=== PATIENT | female | born 1970 | race Caucasian/White ===

== ENCOUNTER 2017-02-09 19:38 | Inpatient (IN) | payer BC ==
[~2017-02-09] VITALS: Ht 170.2 cm; Wt 54.0 kg
[2017-02-09] MEDS ORDERED: NS 1,000 ML IV ONE (20:30)
[2017-02-09 20:45] LABS: INR 1.12
[2017-02-09 20:46] LABS: ADD MANUAL DIFFER YES; DIFF SLIDE NUMBER 338; MEAN CORPUSCULAR HEMOGLOBIN 15.2 pg (27.0-33.0); MEAN CORPUSCULAR VOLUME 65.9 fl (80.0-96.0); PLATELET COUNT, AUTOMATED 137 k/mm3 (150-450); RED CELL DISTRIBUTION WIDTH 24.9 % (11.5-14.5); WHITE BLOOD COUNT 6.4 K/mm3 (4.0-10.0)
[2017-02-09 20:51] LABS: CONTROL LINE UCG INT CTR LINE PRESENT
[2017-02-09 21:00] LABS: ALKALINE PHOSPHATASE 67 U/L (45-117); ALT/SGPT 15 U/L (12-78); ANION GAP 8 MEQ/L (8-16); AST/SGOT 12 U/L (15-37); BLOOD UREA NITROGEN 13 MG/DL (7-18); CALCIUM LEVEL 9.4 MG/DL (8.5-10.1); CARBON DIOXIDE LEVEL 23 MEQ/L (21-32); CHLORIDE LEVEL 104 MEQ/L (98-107); CREATININE FOR GFR 0.73 MG/DL (0.55-1.02); GLOMERULAR FILTRATION RATE > 60.0 (>58); GLUCOSE, FASTING 112 MG/DL (70-105); POTASSIUM SERUM 4.1 MEQ/L (3.5-5.1); SODIUM LEVEL 135 MEQ/L (136-145)
[2017-02-09] MEDS: SENOKOT S TAB PO SCH (21:00)
[2017-02-09 21:01] LABS: ALBUMIN 3.7 GM/DL (3.2-5.2); ALBUMIN/GLOBULIN RATIO 1.09 (1.00-1.93); BILIRUBIN,DIRECT < 0.1 MG/DL (0.0-0.2); BILIRUBIN,TOTAL 0.3 MG/DL (0.2-1.0); TOTAL PROTEIN 7.1 GM/DL (6.4-8.2)
[2017-02-09 21:43] LABS: ANISOCYTOSIS 3+; EOSINOPHILS 1 % (0-5); MICROCYTOSIS 3+
[2017-02-09 21:44] LABS: POIKILOCYTOSIS 1+; POLYCHROMASIA 1+
[2017-02-09 21:45] LABS: HYPOCHROMASIA 3+
--- NOTE | 2017-02-09 22:00 | REPUSA ---
Clinical history: abnormal vaginal bleeding. Findings: Real-time transabdominal and transvaginal ultrasound images of the pelvis were obtained. A retroverted uterus is noted, measuring 9.0 x 5.7 cm. The uterus demonstrates diffuse heterogeneity. T here is a hypoechoic lesion in the anterior left uterus measuring 2.4 x 2.2 x 1.8 cm, consistent with a fibroid. The endometrial stripe measures 14 mm and is within normal limits. The right ovary measur es 4.3 x 3.1 x 2.6 cm. There is a right ovarian cyst measuring 2.9 by 2.6 by 1.7 cm. The left ovary w as not visualized. There is no evidence of free fluid. Impression: 1. Anterior uterine fibroid. 2. Simple right ovarian cyst. The left ovary was not visualized.
[2017-02-09 22:45] LABS: REASON FOR REVIEW ANEMIA / RBC MORPH
[2017-02-09] MEDS ORDERED: NS 1,000 ML IV SCH (23:00)
[2017-02-09 23:05] LABS: FOLATE 14.7 NG/ML (>5.4); VITAMIN B12 LEVEL 449 PG/ML (247-911)
[2017-02-09 23:23] LABS: FERRITIN 1 NG/ML (8-252); PERCENT SATURATION 1.6 % (13.2-37.4); TOTAL IRON BINDING CAPACITY 497 UG/DL (250-450)
[2017-02-09 23:44] VITALS: BP 132/68
[2017-02-10] VITALS (25 sets, daily range): BP systolic 127–162; BP diastolic 66–86
[2017-02-10 00:31] LABS: PREVIOUS RED BLOOD COUNT 1.78 M/mm3 (3.50-5.50)
[2017-02-10 00:32] LABS: RETICULOCYTE CALCULATED 3.7 % (0.5-1.5)
[2017-02-10 04:56] LABS: INR 1.19
[2017-02-10 04:57] LABS: MEAN CORPUSCULAR HEMOGLOBIN 22.5 pg (27.0-33.0); MEAN CORPUSCULAR HGB CONC 29.4 g/dl (32.0-36.5); RED CELL DISTRIBUTION WIDTH 22.4 % (11.5-14.5); WHITE BLOOD COUNT 4.8 K/mm3 (4.0-10.0)
[2017-02-10 05:03] LABS: ANION GAP 6 MEQ/L (8-16); BLOOD UREA NITROGEN 7 MG/DL (7-18); CALCIUM LEVEL 8.7 MG/DL (8.5-10.1); CARBON DIOXIDE LEVEL 23 MEQ/L (21-32); CHLORIDE LEVEL 108 MEQ/L (98-107); CREATININE FOR GFR 0.63 MG/DL (0.55-1.02); GLOMERULAR FILTRATION RATE > 60.0 (>58); GLUCOSE, FASTING 95 MG/DL (70-105); MAGNESIUM LEVEL 2.2 MG/DL (1.8-2.4); POTASSIUM SERUM 4.1 MEQ/L (3.5-5.1); SODIUM LEVEL 137 MEQ/L (136-145)
[2017-02-10 05:08] LABS: MEAN CORPUSCULAR VOLUME 76.3 fl (80.0-96.0)
[2017-02-10] MEDS: ASCORBIC ACID 500 MG TAB PO SCH ×2 (08:17→20:06)
[2017-02-10] MEDS: SENOKOT S TAB PO SCH ×2 (08:17→20:06)
[2017-02-10] MEDS: FERROUS SULFATE 325MG TAB PO SCH ×3 (08:17→20:06)
--- NOTE | 2017-02-10 08:24 | CR ---
DATE OF CONSULTATION: 02/09/2017 REASON FOR CONSULTATION: Abnormal uterine bleeding. HISTORY OF PRESENT ILLNESS: Mrs. Camara is a 47-year-old, 3, para 3 who initially presented last night in the emergency room with several days of extreme fatigue. She reports that on 02/02/2017 she had a heavy menses that started and this menses had followed a previous menstrual cycle approximately 10 days prior. This menstrual cycle that started on the 4th, she states that she went through approximately 20 pads a day at the heaviest peak and has continued until yesterday. Currently, she has some scant bleeding. She reports a history of heavy and prolonged menses. She states that this has been occurring for years. Her cycle normally lasts 7 to 8 days. She goes through approximately eight pads a day and requires overnight pad changes. PAST MEDICAL HISTORY: None. PAST SURGICAL HISTORY She has had an appendectomy. PAST OBSTETRICAL HISTORY: She is a 3, para 3. She has had three term vaginal deliveries, uncomplicated. Children are 19, 21, and 22. GYNECOLOGICAL HISTORY: She reports a long history of prolonged heavy menses. She states that since the of her youngest child they have been this heavy. She has not had a Pap smear or pelvic examination or any health maintenance for approximately 20 years. FAMILY HISTORY: Noncontributory. PHYSICAL EXAMINATION: VITAL SIGNS: Blood pressure 136/75, respirations 20, pulse is 82. She is afebrile. She is saturating 100% on room air. GENERAL APPEARANCE: Well appearing. No acute distress. LUNGS: Clear to auscultation bilaterally. CARDIOVASCULAR: Heart has regular rate and rhythm. ABDOMEN: Soft, nontender, nondistended. PELVIC EXAMINATION: Deferred. LABORATORY DATA: CBC: White blood count was 6.4, hemoglobin 2.7, hematocrit 11.7, platelets 137. Her last CBC after two packed units, her hemoglobin 6.7, hematocrit 22.7, platelets 86. IMAGING: She had a pelvic ultrasound that showed a normal sized uterus of 9 x 5.7 cm with thickened endometrium of 14 mm. There was an anterior fibroid that was measured at 2.4 x 2.2 x 1.8. Right ovarian cyst was seen at 2.9 cm. ASSESSMENT: Mrs. Camara is a 47-year-old 3, para 3 with: 1. Abnormal uterine bleeding with menorrhagia. 2. Severe anemia, symptomatic. Currently stable. 3. Fibroid uterus. 4. Right ovarian cyst. I do believe her anemia is a chronic issue associated with her abnormal uterine bleeding based on her history, likely source of dysfunction bleeding is fibroid uterus, although cannot exclude endometrial hyperplasia or carcinoma. PLAN: I have discussed these findings, as well as my differential diagnosis. We will temporarily place her on medroxyprogesterone 10 mg daily for management of her menorrhagia. She will need a Pap smear, as well as an endometrial biopsy, which can be performed as an outpatient upon discharge from intensive care unit (ICU). I have also discussed long-term treatment options, to include continued medication management with oral contraception pills, progesterone therapy, or Mirena IUD. I did also review surgical options with risks and benefits, including endometrial ablation, hysterectomy. I would not recommend a myomectomy, as she is perimenopausal. I have provided my contact information and Mrs. Camara should followup with me within 1 week of discharge from the hospital. I would like to thank you for the consultation for this pleasant lady. SAGE
--- NOTE | 2017-02-10 08:26 | IPNPDOC ---
Text Note Date of Service The patient was seen on 02/10/17. NOTE Subjective: Feels well. Denies CP/SOB/palpitations. Mild vaginal bleeding. Objective: Vitals: (see below) General: No acute distress, laying comfortably in bed. HEENT: Moist mucous membranes. Neck: No JVD or lymphadenopathy Cardiac: RRR, No murmurs Pulm: Clear to auscultation b/l. No wheezing, rhonchi Abd: NT/ND + BS Ext: No edema or cyanosis. Labs (see below) Images: Pelvic u/s 02/09/17 Impression: 1. Anterior uterine fibroid. 2. Simple right ovarian cyst. The left ovary was not visualized. Assessment/Plan 1. Symptomatic anemia- patient does have significant history of vaginal bleeding as well as a uterine fibroid on pelvic ultrasound. The patient has received 4 units PRBC overnight, with significant improvement of her hemoglobin from 2.7-->6.7. Her tachycardia is much improved as well. She is hemodynamically stable. We'll transfuse 2 more units. Started on ferrous sulfate given iron deficiency anemia. 2. Uterine Fibroid - Gynecology has been consulted. We'll also need outpatient follow-up. 3. Thrombocytopenia- we'll follow-up peripheral smear. Continue to monitor. No acute bleeding at this time. No transfusion indicated at this time. 4. Sinus tachycardia- secondary to symptomatically anemia. Improved. 5. Patient has not seen a physician in over 20 years. 6. T wave changes on EKG, will repeat. Echo pending. 7. Fevers - UA wnl. CXR/blood cx pending. DVT prophy: SCDs Patient with primary care physician on discharge. She will need to have close outpatient follow-up. VS,Fishbone, I+O VS, Fishbone, I+O Laboratory Tests 02/09/17 20:29 Red Blood Count 1.78 L, Mean Corpuscular Volume 65.9 L, Mean Corpuscular Hemoglobin 15.2 L, Mean Corpuscular Hemoglobin Concent 23.0 L, Red Cell Distribution Width 24.9 H 02/10/17 04:28 Red Blood Count 2.97 L, Mean Corpuscular Volume 76.3 #L, Mean Corpuscular Hemoglobin 22.5 L, Mean Corpuscular Hemoglobin Concent 29.4 L, Red Cell Distribution Width 22.4 H 02/10/17 04:29 Calcium Level 8.7 Vital Signs Date Time Temp Pulse Resp B/P (MAP) Pulse Ox O2 Delivery O2 Flow Rate FiO2 02/10/17 06:36 98.7 78 22 145/71 (95) 99 Room Air I&O- Last 24 Hours up to 6 AM 02/10/17 06:00 Intake Total 575 ml Output Total 750 ml Balance -175 ml ZACHERY CALHOUN MD Feb 10, 2017 08:26
[2017-02-10] MEDS: medroxyPROGESTERone 5MG TABLET PO SCH (10:04)
--- NOTE | 2017-02-10 10:54 | REP ---
Portable chest: Single view. History: Fever Comparison study: No comparison study Findings: EKG monitoring electrodes overlie the chest. The lungs are well inflated and clear. No infiltrate is seen. Pleural angles are sharp. Cardiomediastinal silhouette is unremarkable. Pulmonary vasculature is not increased. Impression: Negative portable chest x-ray. Signed by Holden Schmidt MD 02/10/2017 10:45 A
[2017-02-10] MEDS ORDERED: ACETAMINOPHEN 325 MG TAB PO PRN (14:15)
--- NOTE | 2017-02-10 20:42 | HPE ---
DATE OF ADMISSION: 02/09/2017 CHIEF COMPLAINT: Lightheadedness and weakness. PRIMARY CARE PROVIDER: None. HISTORY OF PRESENT ILLNESS: This is a 47-year-old female patient with no significant underlying medical history, has not seen a doctor in years, does not even remember when was the last time she saw a doctor, and usually gets her care from urgent care. Presented to the hospital with vaginal bleeding, also found to have lightheadedness, generalized weakness, heart that is racing for the past one day. As per patient, she usually has her period in the middle of the month. This time, the period started early on 02/02, has continued, passing significant amount of clots and subsequently had slowly started to get better over the past three days, only having spots. As per patient, her last period prior to this was 02/15, usually her period lasting 7-8 days. The patient denies any melena, making bowel movement once a day, has no change, and has no other bleeding source. She presented today in the emergency room, was found to be tachycardic and found to have anemia with hemoglobin of 2.7. Orthostatic was done. The patient was a bit hypertensive but shows worsening tachycardia, with heart rate of 103 to a heart rate of 118, but was able to hold a blood pressure of 140-156 systolic and 76-85 diastolic from supine to standing. About five units of packed red blood cells (PRBCs) were ordered. The patient was consented for transfusion. The patient reported lightheadedness and heart racing, reported generalized weakness, otherwise was healthy. The patient has been twice with normal vaginal delivery. Otherwise, denies any other medical problems. Has no history of bleeding. Denies family history of cancer. Denies any chest pain. Denies any fever, chills, abdominal pain. ALLERGIES: No known drug allergies. PAST MEDICAL HISTORY: None. PAST SURGICAL HISTORY: Appendectomy. SOCIAL HISTORY: The patient drinks beer on very rare occasions once a month. Denies smoking or illicit drug use. FAMILY HISTORY: Denies family history of cancer or gynecological cancer. REVIEW OF SYSTEMS: Reported vaginal bleeding, lightheadedness, heart that is racing. All other review of systems is negative. HOME MEDICATIONS: None. VITAL SIGNS: Temperature 99.3, pulse 103, respirations 18, blood pressure 140/76, pulse oximetry 100% on room air. GENERAL: Patient is pale, alert and oriented times three, in no acute distress. HEENT: Normocephalic, atraumatic. PULMONARY: Bilateral clear to auscultation. CARDIAC: Tachycardia, regular. S1, S2. ABDOMEN: Soft, nontender, nondistended. Positive bowel sounds. EXTREMITIES: No edema bilateral lower extremities. NEUROLOGIC: No focal deficits. LABORATORY DATA: WBC 6.4, hemoglobin and hematocrit 2.7 over 11.7, platelets 137. Chemistry: Sodium 135, potassium 4.1, chloride 104, bicarbonate 23, BUN 13, creatinine 0.73. ASSESSMENT AND PLAN: This is a 47-year-old female patient with no significant past medical history presenting with vaginal bleeding, severe anemia. 1. Severe symptomatic anemia likely secondary to uterine bleeding. Transvaginal ultrasound appreciated showing fibroid. Followup anemia without. Orthostatic vital signs appreciated. Anemia workup, reticulocyte count, iron panel. B12, folic acid have been ordered. Gynecology (SEAFOOD SPECIALIST) Dr. Regan has been consulted for further management of uterine fibroid bleed. Followup fecal occult. Transfuse five units of PRBCs overnight. Will followup vital signs. Intravenous (IV) fluids for hydration. Followup orthostatic vital signs. Followup peripheral smears. Supportive care. 2. Uterine fibroids. SEAFOOD SPECIALIST has been consulted. Further management as per Dr. Regan. 3. Possible acute blood loss anemia secondary to vaginal bleeding, but given patient probably is chronically anemic but has worsened given the recent episode of vaginal bleeding, followup hemoglobin and hematocrit, transfuse five units PRBCs. Further transfusion as needed. Followup orthostatic vital signs. Gynecology has been consulted. Anemia workup as ordered. 4. Thrombocytopenia. Continue to follow. Followup peripheral smear. 5. Deep venous thrombosis (DVT) prophylaxis. The patient is severely anemia. Venodyne sequential compression device and early ambulation. DISPOSITION: Pending SEAFOOD SPECIALIST consultation, clinical improvement. Patient admitted to progressive care unit (PCU) for close monitoring.
--- NOTE | 2017-02-10 21:49 | ECGEPIP ---
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 Electronically Signed On 02-10-2017 21:48:53 EDT by Mauricio Britton
--- NOTE | 2017-02-10 21:55 | ECGEPIP ---
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 No significant change compared with 02/10/2017. Electronically Signed On 02-10-2017 21:55:01 EDT by Mauricio Britton
[2017-02-11] VITALS (7 sets, daily range): BP systolic 125–147; BP diastolic 67–81
[2017-02-11 04:56] LABS: MEAN CORPUSCULAR HEMOGLOBIN 25.3 pg (27.0-33.0); MEAN CORPUSCULAR HGB CONC 31.2 g/dl (32.0-36.5); MEAN CORPUSCULAR VOLUME 81.1 fl (80.0-96.0); RED CELL DISTRIBUTION WIDTH 21.1 % (11.5-14.5)
[2017-02-11 05:00] LABS: INR 1.17
[2017-02-11 05:14] LABS: ANION GAP 6 MEQ/L (8-16); BLOOD UREA NITROGEN 5 MG/DL (7-18); CALCIUM LEVEL 8.8 MG/DL (8.5-10.1); CARBON DIOXIDE LEVEL 24 MEQ/L (21-32); CHLORIDE LEVEL 110 MEQ/L (98-107); CREATININE FOR GFR 0.48 MG/DL (0.55-1.02); GLOMERULAR FILTRATION RATE > 60.0 (>58); GLUCOSE, FASTING 88 MG/DL (70-105); MAGNESIUM LEVEL 2.3 MG/DL (1.8-2.4); POTASSIUM SERUM 3.6 MEQ/L (3.5-5.1); SODIUM LEVEL 140 MEQ/L (136-145)
[2017-02-11] MEDS: FERROUS SULFATE 325MG TAB PO SCH ×3 (09:03→20:41)
[2017-02-11] MEDS: SENOKOT S TAB PO SCH (09:03)
[2017-02-11] MEDS: ASCORBIC ACID 500 MG TAB PO SCH ×2 (09:03→20:41)
[2017-02-11] MEDS: medroxyPROGESTERone 5MG TABLET PO SCH (09:03)
--- NOTE | 2017-02-11 10:24 | IPNPDOC ---
Text Note Date of Service The patient was seen on 02/11/17. NOTE Subjective: Feels well. Had CP last night. Pressure like 02/08, midsternal, non radiating. Non reproducible/non-positional/non pleuritic, lasted minutes. No associated Nausea, diaphoresis. Resolved spontaneously. Objective: Vitals: (see below) General: No acute distress, laying comfortably in bed. HEENT: Moist mucous membranes. Neck: No JVD or lymphadenopathy Cardiac: RRR, No murmurs Pulm: Clear to auscultation b/l. No wheezing, rhonchi Abd: NT/ND + BS Ext: No edema or cyanosis. Labs (see below) Images: Pelvic u/s 02/09/17 Impression: 1. Anterior uterine fibroid. 2. Simple right ovarian cyst. The left ovary was not visualized. Assessment/Plan 1. Symptomatic anemia- patient does have significant history of vaginal bleeding as well as a uterine fibroid on pelvic ultrasound. The patient has received 5 units PRBC overnight, with significant improvement of her hemoglobin from 2.7-->6.7-->9.6. Her tachycardia is much improved as well. She is hemodynamically stable.. Started on ferrous sulfate given iron deficiency anemia. 2. Uterine Fibroid - Gynecology has been consulted. We'll also need outpatient follow-up. 3. Thrombocytopenia- improved. Continue to monitor. No acute bleeding at this time. No transfusion indicated at this time. 4. Sinus tachycardia- resolved. Secondary to symptomatically anemia. Improved. 5. Patient has not seen a physician in over 20 years. 6. CP with T wave changes on EKG. CE negative. Echo pending. Will need outpt cardio f/u/stress test. 7. Fevers - UA wnl. CXR wnl. Blood cx pending. DVT prophy: SCDs Patient will be set up primary care physician on discharge. She will need to have close outpatient follow-up. VS,Fishbone, I+O VS, Fishbone, I+O Laboratory Tests 02/10/17 12:01 02/10/17 19:50 02/11/17 04:22 Red Blood Count 3.81 L, Mean Corpuscular Volume 81.1, Mean Corpuscular Hemoglobin 25.3 L, Mean Corpuscular Hemoglobin Concent 31.2 L, Red Cell Distribution Width 21.1 H, Calcium Level 8.8, Total Creatine Kinase 30 Vital Signs Date Time Temp Pulse Resp B/P (MAP) Pulse Ox O2 Delivery O2 Flow Rate FiO2 02/11/17 07:45 100.1 87 20 125/67 (86) 99 Room Air I&O- Last 24 Hours up to 6 AM 02/11/17 06:00 Intake Total 2900 ml Output Total 3100 ml Balance -200 ml ZACHERY CALHOUN MD Feb 11, 2017 10:24
[2017-02-11] MEDS ORDERED: SLF 3 ML SYR IV PRN (11:30)
[2017-02-11] MEDS: SLF 3 ML SYR IV SCH ×2 (14:44→22:37)
--- NOTE | 2017-02-11 18:48 | ECHO ---
DATE OF PROCEDURE: 02/11/2017 REFERRING PHYSICIAN: Dr. Aparicio INDICATIONS: Abnormal ECG. HEIGHT: 170 cm WEIGHT: 54 kg DIMENSIONS: IVS 0.9 LV 4.9 LVPW 1.2 LA 3.8 Aorta 2.9 FINDINGS: The study is of excellent technical quality. Left ventricle is of normal size and systolic function with estimated EF 60-65%. Right ventricle is also normal size and systolic function. Both atria appear normal size. Aortic valve is tricuspid and has normal mobility. There is anterior mitral leaflet prolapse. Tricuspid valve is normal. Pulmonic valve is also normal. No pericardial effusion is noted. Inferior vena cava is on upper on upper limits of normal size or mildly dilated. Aortic root, aortic arch and abdominal aorta appear all normal. Doppler interrogation of aortic valve reveals no stenosis or insufficiency. There is a posteriorly and laterally oriented MR jet with approximately moderate mitral insufficiency. There is mild tricuspid insufficiency. Calculated pulmonary artery pressure is on upper limits of normal values or mildly elevated. Pulmonic valve is functionally competent. Mitral inflow pattern and tissue Doppler imaging of mitral annulus reveal normal diastolic functional left ventricle. CONCLUSIONS: 1. Study is of excellent technical quality. 2. Normal LV size, systolic and diastolic function. 3. Anterior mitral leaflet prolapse resulting in moderate mitral insufficiency. 4. Normal or mildly elevated central venous pressure and pulmonary artery pressure. COMMENT: Subacute bacterial endocarditis (SBE) prophylaxis is not recommended. Close clinical followup is recommended. Followup echocardiogram can be considered in 2-3 years or sooner if clinically warranted. MTDD
[2017-02-12 05:01] LABS: INR 1.11
[2017-02-12 05:02] LABS: MEAN CORPUSCULAR HEMOGLOBIN 25.2 pg (27.0-33.0); MEAN CORPUSCULAR HGB CONC 31.1 g/dl (32.0-36.5); RED CELL DISTRIBUTION WIDTH 22.1 % (11.5-14.5); WHITE BLOOD COUNT 7.7 K/mm3 (4.0-10.0)
[2017-02-12 05:03] VITALS: BP 140/79
[2017-02-12 05:03] LABS: ANION GAP 6 MEQ/L (8-16); BLOOD UREA NITROGEN 4 MG/DL (7-18); CALCIUM LEVEL 8.6 MG/DL (8.5-10.1); CARBON DIOXIDE LEVEL 23 MEQ/L (21-32); CHLORIDE LEVEL 110 MEQ/L (98-107); CREATININE FOR GFR 0.46 MG/DL (0.55-1.02); GLOMERULAR FILTRATION RATE > 60.0 (>58); GLUCOSE, FASTING 87 MG/DL (70-105); MAGNESIUM LEVEL 2.3 MG/DL (1.8-2.4); POTASSIUM SERUM 3.6 MEQ/L (3.5-5.1); SODIUM LEVEL 139 MEQ/L (136-145)
[2017-02-12] MEDS: SLF 3 ML SYR IV SCH (06:19)
[2017-02-12 08:00] VITALS: BP 137/80
[2017-02-12] MEDS ORDERED: MEDR5TAB3 PO (08:12)
[2017-02-12] MEDS ORDERED: FERR1TAB8 PO (08:12)
[2017-02-12] MEDS: ASCORBIC ACID 500 MG TAB PO SCH (08:48)
[2017-02-12] MEDS: medroxyPROGESTERone 5MG TABLET PO SCH (08:48)
[2017-02-12] MEDS: FERROUS SULFATE 325MG TAB PO SCH (08:48)
--- NOTE | 2017-02-12 12:22 | DS.PDOC ---
Discharge Summary General Date of Admission Feb 09, 2017 at 22:51 Date of Discharge 02/12/17 Attending Physician: ZACHERY CALHOUN MD Discharge Summary PROCEDURES PERFORMED DURING STAY: None. ADMITTING/DISCHARGE DIAGNOSES: 1. Symptomatic anemia 2. Uterine dysfunction/uterine fibroid 3. Thrombocytopenia resolved 4. Atypical chest pain 5. Mitral regurg 6. Iron deficiency anemia COMPLICATIONS/CHIEF COMPLAINT: Acute Blood Loss Anemia. HISTORY OF PRESENT ILLNESS/HOSPITAL COURSE: . This is a 39-year-old female with no significant past medical history has not seen a physician in over 20 years who presents complaining of shortness of breath and generalized weakness. Patient was found to be severely anemic with a hemoglobin of 2.7. Patient did receive 5 units PRBC with significant improvement of her hemoglobin. Patient's hemoglobin remained stable. Patient has been having uterine bleeding for years and has not been seen by a hand plug shaper. During this hospitalization, Dr. Regan evaluated the patient is started her on medroxyprogesterone, which she is to continuing to follow-up with him in 1-2 weeks in the office. Patient does have uterine fibroid which is likely the cause of her heavy menses. The patient will need close follow-up in regards to whether to resect this fibroid. During his hospital addition, patient also complained of chest pain, which is further worked up with an EKG noting a T-wave inversions in V1 and V2. Patient also had an echocardiogram with mitral regurgitation noted. The patient was advised to follow-up with a phlebotomy supervisor in 1-2 weeks she will need a stress test to rule out ischemia. The patient remained hemodynamically stable. She did have a few episodes of fevers however no source of infection was noted, the fevers self resolved, and blood cultures have been negative. Questionable whether these fevers were caused by the blood transfusion. Patient is hemodynamically stable be discharged home today. DISCHARGE MEDICATIONS: Please see below. ALLERGIES: Please see below. PHYSICAL EXAMINATION ON DISCHARGE: VITAL SIGNS: Please see below. Vitals: (see below) General: No acute distress, laying comfortably in bed. HEENT: Moist mucous membranes. Neck: No JVD or lymphadenopathy Cardiac: RRR, No murmurs Pulm: Clear to auscultation b/l. No wheezing, rhonchi Abd: NT/ND + BS Ext: No edema or cyanosis. LABORATORY DATA: Please see below. IMAGING: Chest x-ray 02/10/17 Impression:Negative portable chest x-ray. Pelvic ultrasound 02/09/17 Impression: 1. Anterior uterine fibroid. 2. Simple right ovarian cyst. The left ovary was not visualized. Echocardiogram 02/11/17 CONCLUSIONS: 1. Study is of excellent technical quality. 2. Normal LV size, systolic and diastolic function. 3. Anterior mitral leaflet prolapse. The resulting in moderate mitral insufficiency. 4. Normal mildly elevated central venous pressure and pulmonary artery pressure. PROGNOSIS: Fair ACTIVITY: As tolerated. DIET: As tolerated DISCHARGE PLAN/DISPOSITION: Home DISCHARGE INSTRUCTIONS: 1. Follow-up with PCP, cardiology, and Dr. Regan in 1-2 weeks. Patient states she would like to make her own appointments. DISCHARGE CONDITION: Stable. TIME SPENT ON DISCHARGE: Greater than 30 minutes. Vital Signs/I&Os Vital Signs Date Time Temp Pulse Resp B/P (MAP) Pulse Ox O2 Delivery O2 Flow Rate FiO2 02/12/17 08:00 98.6 73 18 137/80 (99) 100 Room Air I&O- Last 24 Hours up to 6 AM 02/12/17 06:00 Intake Total 1140 ml Output Total 3350 ml Balance -2210 ml Laboratory Data Labs 24H Laboratory Tests 2 02/12/17 04:37: Prothrombin Time 14.5, Prothromb Time International Ratio 1.11, Anion Gap 6L, Glomerular Filtration Rate > 60.0, Blood Urea Nitrogen 4L, Creatinine 0.46L, Sodium Level 139, Potassium Level 3.6, Chloride Level 110H, Carbon Dioxide Level 23, Calcium Level 8.6, Magnesium Level 2.3 CBC/BMP Laboratory Tests 02/11/17 12:04 02/11/17 19:49 02/12/17 04:37 Red Blood Count 3.89 L, Mean Corpuscular Volume 81.0, Mean Corpuscular Hemoglobin 25.2 L, Mean Corpuscular Hemoglobin Concent 31.1 L, Red Cell Distribution Width 22.1 H, Calcium Level 8.6 Microbiology Microbiology 02/10/17 Blood Culture - Preliminary, Resulted No growth after 24 hours . All specim... 02/10/17 Blood Culture - Preliminary, Resulted No growth after 24 hours . All specim... 02/09/17 Urine Culture - Final, Complete Discharge Medications Scheduled Ferrous Sulfate (Ferrous Sulfate) 325 Mg Tab, 325 MG PO TID Medroxyprogesterone Acetate (Medroxyprogesterone Aceta) 5 Mg Tab, 10 MG PO DAILY Allergies Coded Allergies: No Known Allergies (Unverified , 02/09/17) ZACHERY CALHOUN MD Feb 12, 2017 12:22
[2017-03-08] MEDS ORDERED: [UNRECOGNIZED DRUG - CODE] PO (13:15)
== END 2017-02-12 12:13 | disposition home or self-care (01) | DRG 532 ==
LOC: M ED 19:38 → M ED INP 22:51 → M ICU 02-10 → M PCU 02-10 14:56
PROVIDERS: ADMIT Hospitalist; ATTEND Internal Medicine
PROC: 30253N1 (ICD-10-PCS; principal; 2017-02-09)
DX: N92.0 Excessive and frequent menstruation with regular cycle (principal); D62 Acute posthemorrhagic anemia; D69.6 Thrombocytopenia, unspecified; D25.9 Leiomyoma of uterus, unspecified; N83.201 Unspecified ovarian cyst, right side; R07.9 Chest pain, unspecified; R50.9 Fever, unspecified; R00.0 Tachycardia, unspecified

== ENCOUNTER 2017-02-22 20:48 | Emergency (ER) | payer BC ==
[~2017-02-22] VITALS: Ht 170.2 cm; Wt 52.9 kg
[~2017-02-22 20:48] MED LIST: FERR1TAB8 PO; MEDR5TAB3 PO
[2017-02-22] MEDS ORDERED: NS 1,000 ML IV ONE (22:30)
[2017-02-22 22:40] LABS: BASO # 0.1 K/mm3 (0.0-0.2); BASO % 0.8 % (0.0-1.0); EOS % 0.3 % (0.0-3.0); LARGE UNSTAINED CELL # 0.2 K/mm3 (0.0-0.4); LARGE UNSTAINED CELL % 1.5 % (0.0-4.0); LYMPH # 1.4 K/mm3 (1.5-4.5); LYMPH % 14.2 % (24.0-44.0); MEAN CORPUSCULAR HEMOGLOBIN 25.5 pg (27.0-33.0); MEAN CORPUSCULAR HGB CONC 30.4 g/dl (32.0-36.5); MEAN CORPUSCULAR VOLUME 83.8 fl (80.0-96.0); MONO # 0.5 K/mm3 (0.0-0.8); MONO % 4.6 % (0.0-5.0); NEUTROPHILS # 7.7 K/mm3 (1.8-7.7); NEUTROPHILS % 78.6 % (36.0-66.0); PLATELET COUNT, AUTOMATED 290 k/mm3 (150-450); RED CELL DISTRIBUTION WIDTH 22.3 % (11.5-14.5); WHITE BLOOD COUNT 9.8 K/mm3 (4.0-10.0)
[2017-02-22 22:42] LABS: ADD MORPHOLOGY? YES
[2017-02-22 22:54] LABS: ANION GAP 7 MEQ/L (8-16); BLOOD UREA NITROGEN 12 MG/DL (7-18); CALCIUM LEVEL 9.6 MG/DL (8.5-10.1); CARBON DIOXIDE LEVEL 24 MEQ/L (21-32); CHLORIDE LEVEL 105 MEQ/L (98-107); CREATININE FOR GFR 0.58 MG/DL (0.55-1.02); GLOMERULAR FILTRATION RATE > 60.0 (>58); GLUCOSE, FASTING 114 MG/DL (70-105); POTASSIUM SERUM 3.9 MEQ/L (3.5-5.1); SODIUM LEVEL 136 MEQ/L (136-145)
[2017-02-22 23:36] LABS: ANISOCYTOSIS 3+
[2017-02-22 23:38] LABS: HYPOCHROMASIA 1+
--- NOTE | 2017-02-23 | REPUSA ---
Clinical history: bleeding. Comparison: 02/09/2017. Findings: Real-time transvaginal ultrasound images of the pelvis were obtained. An anteverted uterus is noted, measuring 9.6 x 6.8 x 7.8 cm. The uterus demonstrates numerous solid masses. There is a l arge hyperechoic mass in the left posterior uterus measuring 3.2 x 3.3 x 2.8 cm. A anterior left fib roid is noted measuring 2.7 x 2.3 x 2.4 cm. The endometrial stripe measures 21 mm. Complex material i s seen within the endometrial canal. The right ovary measures 4.9 x 3.6 x 3.2 cm. There is a simple r ight ovarian cyst, measuring 2.9 x 3.0 x 2.2 cm. The left ovary was not visualized. Normal color Dopp ler flow is seen within the right ovary.. There is no evidence of free fluid. Impression: 1.. Simple right ovarian cyst. 2.. The left ovary was not visualized. 3. Leiomyomatous uterus. 4. Thickened, echogenic endometrial canal, suspicious for blood products and clot. This finding of bl eeding is new since the prior study. Clinical correlation is recommended.
[2017-02-23 01:13] VITALS: BP 134/85
--- NOTE | 2017-02-23 18:44 | ED PDOC ---
Post-Departure Follow-Up dr hyde faxed formal report of pelvic us for fu Mohsen Hwang MD Feb 23, 2017 18:44
[2017-03-08] MEDS ORDERED: [UNRECOGNIZED DRUG - CODE] PO (13:15)
== END 2017-02-23 01:14 | disposition home or self-care (01) ==
LOC: M ED 20:48
DX: D25.9 Leiomyoma of uterus, unspecified (principal); N83.291 Other ovarian cyst, right side; N85.00 Endometrial hyperplasia, unspecified; N93.8 Other specified abnormal uterine and vaginal bleeding; D64.9 Anemia, unspecified; Z90.89 Acquired absence of other organs; Z79.899 Other long term (current) drug therapy

== ENCOUNTER → 2017-02-24 | Outpatient (REF) | payer BC ==
[~2017-02-24] MED LIST changes: +FERR325T3 PO; +OXYC1TAB23 PO; +[UNRECOGNIZED DRUG - CODE] PO
== END ==
LOC: M LAB REF 17:04
PROVIDERS: ATTEND Obstetrics & Gynecology
DX: N92.1 Excessive and frequent menstruation with irregular cycle (principal)

== ENCOUNTER 2017-03-11 05:35 | Day surgery (SDC) | payer BC ==
[~2017-03-11] VITALS: Ht 170.2 cm; Wt 53.1 kg
[2017-03-11] VITALS (7 sets, daily range): BP systolic 118–136; BP diastolic 57–69
[~2017-03-11 05:35] MED LIST changes: -FERR325T3 PO; -OXYC1TAB23 PO
[2017-03-11] MEDS ORDERED: LR 1,000 ML IV ONE (06:00)
[2017-03-11] MEDS ORDERED: LIDOCAINE 1% MDV 20ML VIAL SQ ONE (06:00)
[2017-03-11 06:14] LABS: MEAN CORPUSCULAR HEMOGLOBIN 26.8 pg (27.0-33.0); MEAN CORPUSCULAR HGB CONC 29.8 g/dl (32.0-36.5); MEAN CORPUSCULAR VOLUME 89.8 fl (80.0-96.0); RED CELL DISTRIBUTION WIDTH 18.8 % (11.5-14.5)
[2017-03-11 06:21] LABS: CONTROL LINE HCG INT CTR LINE PRESENT
[2017-03-11] MEDS ORDERED: BUPIVACAINE HCL 0.25% 30 ML VIAL As Ordered ONE (07:18)
[2017-03-11] MEDS ORDERED: METHYLENE BLUE 0.5% (5MG/ML) 10 ML AMP (PROVAYBLUE)(Q9968 PER 1MG) As Ordered ONE (07:18)
[2017-03-11] MEDS ORDERED: MIDAZOLAM INJ 2 MG/2 ML VIAL (J2250) As Ordered ONE (08:00)
[2017-03-11] MEDS ORDERED: fentaNYL 250 MCG/5 ML INJECTION (J3010) As Ordered ONE (08:00)
[2017-03-11] MEDS ORDERED: PROPOFOL 500 MG/50 ML VIAL As Ordered ONE (08:00)
[2017-03-11] MEDS ORDERED: dexameTHASONE 4 MG/ML 1ML VIAL (J1100) As Ordered ONE (08:00)
[2017-03-11] MEDS ORDERED: METOCLOPRAMIDE INJ 10MG/2ML VIAL (J2765) As Ordered ONE (08:01)
[2017-03-11] MEDS ORDERED: LIDOCAINE 2% INJ 100 MG/5 ML SDV (FOR ANES.) As Ordered ONE (08:01)
[2017-03-11] MEDS ORDERED: ONDANSETRON 4MG/2ML VIAL (J2405) As Ordered ONE (08:01)
[2017-03-11] MEDS ORDERED: VECURONIUM BROMIDE 10 MG VIAL As Ordered ONE (08:01)
[2017-03-11] MEDS ORDERED: fentaNYL 100 MCG/2 ML INJECTION (J3010) As Ordered ONE (09:29)
[2017-03-11] MEDS ORDERED: KETOROLAC 60 MG/2 ML VIAL (J1885) As Ordered ONE (09:31)
[2017-03-11] MEDS ORDERED: DESFLURANE 240 ML INHALANT As Ordered ONE (09:41)
[2017-03-11] MEDS ORDERED: NEOSTIGMINE 1MG/ML 5 ML SYRINGE (J2710) As Ordered ONE (10:11)
[2017-03-11] MEDS ORDERED: GLYCOPYRROLATE INJ 0.2 MG/ML 2 ML VIAL As Ordered ONE (10:12)
[2017-03-11] MEDS ORDERED: fentaNYL 100 MCG/2 ML INJECTION (J3010) IV PRN (11:00)
[2017-03-11] MEDS ORDERED: LR 1,000 ML IV SCH (11:00)
[2017-03-11] MEDS ORDERED: ONDANSETRON 4MG/2ML VIAL (J2405) IV PRN (11:00)
[2017-03-11] MEDS ORDERED: PROMETHAZINE INJ 25 MG/ML VIAL (J2550) IV PRN (11:15)
[2017-03-11] MEDS ORDERED: MORPHINE 4 MG/ML 1ML SYRINGE IV PRN (11:15)
[2017-03-11] MEDS ORDERED: PERCOCET 5MG/325MG TAB PO PRN ×3 (11:15→12:15)
[2017-03-11] MEDS ORDERED: zolPIDEM TARTRATE 10MG TAB PO PRN (11:15)
--- NOTE | 2017-03-11 12:14 | RO ---
DATE OF PROCEDURE: 03/11/2017 PREOPERATIVE DIAGNOSIS: Symptomatic fibroid uterus. POSTOPERATIVE DIAGNOSIS: Symptomatic fibroid uterus. PROCEDURE PERFORMED: 1. Robotic assisted laparoscopic hysterectomy. 2. Bilateral salpingo-oophorectomy. 3. Cystoscopy. 4. Lysis of adhesions SURGEON: Ciera Regan MD [facility] OPERATOR: PORSHA Boudreaux ANESTHESIA: General endotracheal anesthesia. INTRAVENOUS FLUIDS: 1800 mL Lactated Ringer's solution. SPECIMENS: Cervix, uterus, bilateral fallopian tubes and ovaries. PREOPERATIVE ANTIBIOTICS: 2 grams of Ancef. OPERATIVE FINDINGS: Large fibroid uterus weighing 215 grams. Normal appearing bilateral adnexa. Omentum adhesions to anterior abdominal wall. DESCRIPTION OF OPERATION: After informed consent was obtained and written consent was reviewed, the patient was then brought to the operating room where general endotracheal anesthesia was obtained. She was placed in lithotomy position, was prepped and draped in a normal sterile fashion. A time out in the operating room was then performed identifying the patient, procedure to be performed as well as drug allergies. A speculum was then placed revealing the cervix. The anterior and posterior aspect of the cervix was stitched with #0 Vicryl. The uterus was then sounded to 13 cm. An extra large VCare uterine manipulator was then advanced through the cervical os for a means to manipulate the uterus. The intrauterine balloon was insufflated with 10 mL of air. The cervical cap as well as the vaginal sleeve was advanced down into the vagina. Instruments were removed from the vagina. A Riddle catheter was then placed and set to gravity. Gloves were changed and attention was turned to the patient's abdomen where a Veress needle was placed in the umbilicus and a pneumoperitoneum was obtained with CO2 gas. The umbilical area was then infused with 0.25% Marcaine and an incision was made into this area. A 12 mm trocar and sleeve was advanced through this incision. Laparoscope was then replaced revealing intra-abdominal placement. Two lateral ports left and to the right of the umbilicus were placed. Each of these were infused with 0.25% Marcaine. An 8 mm trocar and sleeve was advanced through each one of these incisions under direct visualization. A fourth trocar was placed in the left side of the patient's abdomen. This area was infused with 0.25% Marcaine. An incision was made in this area and another 8 mm trocar and sleeve was advanced through this incision under direct visualization. Next, the da Samantha was advanced to the patient's table and was docked utilizing the camera arm and two operative arm. Utilizing the da Samantha equipment with bipolar cautery, lysis of adhesions was performed along the anterior abdominal wall involving the omentum consistent with prior appendectomy. Attention was then directed towards the hysterectomy. The uterine ovarian ligaments were then cauterized bilaterally and ligated with good hemostasis noted. The round ligaments on both sides were also cauterized and ligated with good hemostasis noted. The anterior lip of the broad ligaments were then dissected along the bladder creating a bladder flap. The remainder of the broad ligaments and cardinal ligaments were then cauterized and ligated with good hemostasis noted. The uterine arteries were skeletonized bilaterally and were cauterized and ligated with good hemostasis noted. Anterior and posterior colpotomies were made. The uterus was then removed vaginally. Surgical sites were inspected and noted to be hemostatic. Next, bilateral salpingo-oophorectomy was then performed. The right fallopian tube was placed on traction. The right infundibulopelvic ligament was cauterized and ligated with good hemostasis noted. The specimen was then brought out through the vaginal incision. In a similar fashion, the left adnexa was then placed on traction and the left infundibulopelvic ligament was cauterized and ligated with good hemostasis noted. The specimen was brought out through the vaginal incision. The vaginal cuff was then closed laparoscopically using a #2- 0 V-Loc system in a running fashion. Surgical sites were then irrigated and good hemostasis was noted. Caroline was applied over the surgical field. Next, a cystoscopy was performed. The Riddle catheter was removed. A 70 degree scope was then advanced transurethrally and cystoscopy was performed revealing normal bilateral mucosa and bilateral jets with indigo carmine. The bladder was then drained. Gloves were changed and attention was turned to the patient's abdomen where all four skin incisions were closed with #4-0 Monocryl and dressed with DERMABOND. The patient was then taken out of lithotomy position, and was awakened from general anesthesia and taken to recovery in stable condition. Counts were correct. Rose Mcclain, my ex assistant/program director, played an essential role in the operation. She assisted with identification of vital structures, manipulation of tissue, port placement as well as skin closure. KAROD
[2017-03-11] MEDS: PERCOCET 5MG/325MG TAB PO PRN ×2 (12:36→22:04)
[2017-03-11] MEDS: LR 1,000 ML IV SCH ×2 (14:33→19:15)
[2017-03-11] MEDS: KETOROLAC 30 MG/ML VIAL (J1885) IV SCH ×2 (17:39→22:04)
[2017-03-12] VITALS: BP 123/60
[2017-03-12] MEDS: LR 1,000 ML IV SCH (03:15)
[2017-03-12 04:00] VITALS: BP 155/74
[2017-03-12] MEDS: KETOROLAC 30 MG/ML VIAL (J1885) IV SCH ×2 (05:12→11:07)
[2017-03-12 07:56] LABS: MEAN CORPUSCULAR HEMOGLOBIN 27.5 pg (27.0-33.0); MEAN CORPUSCULAR HGB CONC 30.3 g/dl (32.0-36.5); MEAN CORPUSCULAR VOLUME 90.8 fl (80.0-96.0); RED CELL DISTRIBUTION WIDTH 18.7 % (11.5-14.5); WHITE BLOOD COUNT 10.1 K/mm3 (4.0-10.0)
[2017-03-12 08:00] VITALS: BP 143/70
[2017-03-12 12:00] VITALS: BP 129/85
[2017-03-12] MEDS ORDERED: FERR325T3 PO (12:54)
[2017-03-12] MEDS ORDERED: OXYC1TAB23 PO (12:54)
== END 2017-03-12 13:15 | disposition home or self-care (01) ==
LOC: M SDC 05:35 → M PED 11:30 → M SDC 03-12 13:15
PROVIDERS: ATTEND Obstetrics & Gynecology
DX: D25.0 Submucous leiomyoma of uterus (principal); D25.1 Intramural leiomyoma of uterus; D25.2 Subserosal leiomyoma of uterus; N93.9 Abnormal uterine and vaginal bleeding, unspecified; D50.0 Iron deficiency anemia secondary to blood loss (chronic); I34.1 Nonrheumatic mitral (valve) prolapse; R03.0 Elevated blood-pressure reading, without diagnosis of hypertension; Z79.899 Other long term (current) drug therapy
CPT/HCPCS: 36415; 58571; 84703; 85027; 86850; 86900; 86901; 88307; 96375; 96376; A6024; J0690; J1100; J1885; J2250; J2405; J2710; J2765; J3010; Q9968

== ENCOUNTER → 2017-05-28 | Outpatient (CLI) | payer BC ==
[~2017-05-28] MED LIST changes: +FERR325T3 PO; +OXYC1TAB23 PO
[2017-05-28 12:38] LABS: BASO % 0.5 % (0.0-1.0); EOS # 0.1 10^3/uL (0.0-0.50); EOS % 1.4 % (0.0-3.0); IMMATURE GRANULOCYTE % 0.2 % (0-0); LYMPH # 1.7 10^3/uL (1.5-4.5); LYMPH % 30.3 % (24.0-44.0); MEAN CORPUSCULAR HEMOGLOBIN 26.8 pg (27.0-33.0); MEAN CORPUSCULAR HGB CONC 32.1 g/dl (32.0-36.5); MEAN CORPUSCULAR VOLUME 83.7 fl (80.0-96.0); MONO # 0.5 10^3/uL (0.0-0.8); MONO % 7.8 % (0.0-5.0); NEUTROPHILS # 3.4 10^3/uL (1.8-7.7); NEUTROPHILS % 59.8 % (36.0-66.0); PLATELET COUNT, AUTOMATED 192 10^3/uL (150-450); RED CELL DISTRIBUTION WIDTH 13.9 % (11.5-14.5); WHITE BLOOD COUNT 5.8 10^3/uL (4.0-10.0)
[2017-05-28 13:19] LABS: ANION GAP 5 MEQ/L (8-16); BLOOD UREA NITROGEN 12 MG/DL (7-18); CALCIUM LEVEL 10.8 MG/DL (8.5-10.1); CARBON DIOXIDE LEVEL 31 MEQ/L (21-32); CHLORIDE LEVEL 105 MEQ/L (98-107); CHOLESTEROL LEVEL 244 MG/DL (<200); CREATININE FOR GFR 0.62 MG/DL (0.55-1.02); FERRITIN 7 NG/ML (8-252); GLOMERULAR FILTRATION RATE > 60.0 (>58); GLUCOSE, FASTING 89 MG/DL (70-105); PERCENT SATURATION 15.8 % (13.2-45.0); POTASSIUM SERUM 4.2 MEQ/L (3.5-5.1); SODIUM LEVEL 141 MEQ/L (136-145); TOTAL IRON BINDING CAPACITY 431 UG/DL (250-450); TRIGLYCERIDES LEVEL 165 MG/DL (<150)
== END ==
LOC: M WUC 09:40
PROVIDERS: ATTEND Physician Assistant Medical
DX: Z00.00 Encounter for general adult medical examination without abnormal findings (principal); D50.9 Iron deficiency anemia, unspecified

== ENCOUNTER → 2018-02-25 | Outpatient (CLI) | payer BC ==
[2018-02-25 14:01] LABS: ALBUMIN 3.9 GM/DL (3.2-5.2); ALBUMIN/GLOBULIN RATIO 0.95 (1.00-1.93); ALKALINE PHOSPHATASE 122 U/L (45-117); ALT/SGPT 26 U/L (12-78); ANION GAP 6 MEQ/L (8-16); AST/SGOT 16 U/L (7-37); BILIRUBIN,TOTAL 0.5 MG/DL (0.2-1.0); BLOOD UREA NITROGEN 14 MG/DL (7-18); CARBON DIOXIDE LEVEL 28 MEQ/L (21-32); CHLORIDE LEVEL 109 MEQ/L (98-107); CHOLESTEROL LEVEL 185 MG/DL (<200); CHOLESTEROL RISK RATIO 2.983 (<5); CREATININE FOR GFR 0.68 MG/DL (0.55-1.30); GLOMERULAR FILTRATION RATE > 60.0 (>58); GLUCOSE, FASTING 100 MG/DL (70-100); HDL CHOLESTEROL 62 MG/DL (>40); LDL CHOLESTEROL 109.4 MG/DL (<100); NON-HDL-C 123 MG/DL; POTASSIUM SERUM 4.2 MEQ/L (3.5-5.1); SODIUM LEVEL 143 MEQ/L (136-145); TRIGLYCERIDES LEVEL 68 MG/DL (<150)
== END ==
LOC: M WUC 09:30
DX: E78.5 Hyperlipidemia, unspecified (principal)
CPT/HCPCS: 80053